=== PATIENT | female | born 1995 | race Caucasian/White ===

== ENCOUNTER 2019-03-23 13:57 | Emergency (ER) | payer OTHER ==
[~2019-03-23] VITALS: Ht 167.6 cm; Wt 63.5 kg
[2019-03-23 14:10] VITALS: BP 124/56
--- NOTE | 2019-03-23 14:13 | NUR ---
PT AMBULATED TO ED BECCA
--- NOTE | 2019-03-23 14:50 | NUR ---
PT TAKEN TO CHAIR B.
[2019-03-23] MEDS ORDERED: ACETAMINOPHEN 325 MG TAB PO ONE (15:00)
--- NOTE | 2019-03-23 15:00 | NUR ---
23/F BIB SELF C/O GENERALIZED BODY PAIN X 4 MONTHS. PT STATED HAD BEEN USING FENTANY[place] FOR 8 MONTHS RECREATIONALLY "FROM ON THE STREETS", STOPPED 4 MONTHS AGO. THEN STATED HAVING BODY PAIN. STATES SHARP PAIN NOW AT BL LUMBAR BACK AND AND BL KNEES. DENIES F/C, N/V, UTI SYMPTOMS, TRAUMA. HX- DENIES
--- NOTE | 2019-03-23 15:10 | NUR ---
Patient discharged with v/s stable. Written and verbal after care instructions given and explained. Patient alert, oriented and verbalized understanding of instructions. Ambulatory with steady gait. All questions addressed prior to discharge. ID band removed. Patient advised to follow up with PMD. Rx of FLEXERIL AND IBUPROFEN given. Patient educated on indication of medication including possible reaction and side effects. Opportunity to ask questions provided and answered.
[2019-03-23 15:12] VITALS: BP 124/56
== END 2019-03-23 15:10 | disposition home or self-care (01) ==
LOC: MED 13:57
DX: M79.10 Myalgia, unspecified site (principal)
CPT/HCPCS: 99283

== ENCOUNTER 2019-04-12 20:49 | Emergency (ER) | payer OTHER ==
[~2019-04-12] VITALS: Ht 167.6 cm; Wt 65.8 kg
[2019-04-12 21:02] VITALS: BP 105/71
--- NOTE | 2019-04-12 22:17 | NUR ---
PT AMBULATED TO BED 4
--- NOTE | 2019-04-12 22:39 | NUR ---
BIB SELF C/O BODY ACHES/ RHINORRHEA/ SORE THROAT/ NAUSEA X2DAYS. DENIES ANY V/D, SOB, CHEST PAIN. RESP ARE EVEN AND UNLABORED. NO ACCESSORY MUSCLE USE NOTED. BOWEL SOUNDS NORMOACTIVE. CAP REFILL<3. AAOX4. SKIN IS COOL,DRY, IN TACT. PATIENT DENIES ANY RECENT ILLNESS. NO PMH NKA
[2019-04-12] MEDS ORDERED: KETOROLAC 30 MG/ML VIAL IM ONE (23:25)
[2019-04-12 23:47] VITALS: BP 105/71
--- NOTE | 2019-04-12 23:47 | NUR ---
Patient discharged with v/s stable. Written and verbal after care instructions given and explained. Patient alert, oriented and verbalized understanding of instructions. Ambulatory with steady gait. All questions addressed prior to discharge. ID band removed. Patient advised to follow up with PMD. Rx of TAMIFLU, NAPROSYN, GUAIATUSSIN given. Patient educated on indication of medication including possible reaction and side effects. Opportunity to ask questions provided and answered.
== END 2019-04-12 23:47 | disposition home or self-care (01) ==
LOC: MED 20:49
DX: J11.1 Influenza due to unidentified influenza virus with other respiratory manifestations (principal)
CPT/HCPCS: 87804; 96372; 99283; J1885

== ENCOUNTER 2019-04-24 11:43 | Emergency (ER) | payer OTHER ==
[~2019-04-24] VITALS: Ht 162.6 cm; Wt 62.6 kg
--- NOTE | 2019-04-24 11:49 | NUR ---
PATIENT AMBULATED WITH STEADY GAIT TO BED 2.
[2019-04-24 11:50] VITALS: BP 102/66
--- NOTE | 2019-04-24 12:41 | NUR ---
Stable VSS Minimal pain MD has reassessed and Dc'd home To exit
== END 2019-04-24 12:41 | disposition home or self-care (01) ==
LOC: MED 11:43
DX: B07.0 Plantar wart (principal)
CPT/HCPCS: 99281

== ENCOUNTER 2020-01-28 13:15 | Emergency (ER) | payer OTHER ==
[~2020-01-28] VITALS: Ht 167.6 cm; Wt 68.0 kg
[2020-01-28 14:01] VITALS: BP 109/70
--- NOTE | 2020-01-28 14:08 | NUR ---
OF4
[2020-01-28 14:53] VITALS: BP 109/70
--- NOTE | 2020-01-28 14:54 | NUR ---
C/O COUGH, RUNNY NOSE, BODY ACHE. FAMILY HAD COVID TESTED +.
--- NOTE | 2020-01-28 14:54 | NUR ---
Patient discharged with v/s stable. Written and verbal after care instructions given and explained. Patient verbalized understanding. Ambulatory with steady gait. All questions addressed prior to discharge. Advised to follow up with PMD.
--- NOTE | 2020-01-29 20:17 | NUR ---
Positive COVID-19 test results were received from lab. A copy of the test results were given to Infection
== END 2020-01-28 14:54 | disposition home or self-care (01) ==
LOC: MED 13:15
DX: J02.9 Acute pharyngitis, unspecified (principal); Z20.828 Contact with and (suspected) exposure to other viral communicable diseases
CPT/HCPCS: 99283; U0003

== ENCOUNTER 2020-09-19 12:48 | Emergency (ER) | payer OTHER ==
[~2020-09-19] VITALS: Ht 152.4 cm; Wt 63.5 kg
[2020-09-19 12:56] VITALS: BP 113/72
--- NOTE | 2020-09-19 12:59 | NUR ---
PT TO AWAIT IN LOBBY
[2020-09-19] MEDS ORDERED: CEPH-588 PO (13:45)
[2020-09-19] MEDS ORDERED: HYD1C TP (13:45)
[2020-09-19] MEDS ORDERED: NAPR-54 PO (13:45)
[2020-09-19 13:55] VITALS: BP 113/72
--- NOTE | 2020-09-19 13:56 | NUR ---
PATIENT ASSESSED AND DISCHARGED BY GURMEET ADAN. NO NURSING INTERVENTIONS PERFORMED
--- NOTE | 2020-09-19 13:56 | NUR ---
Patient discharged with v/s stable. Written and verbal after care instructions given and explained. Patient alert, oriented and verbalized understanding of instructions. Ambulatory with steady gait. All questions addressed prior to discharge. ID band removed. Patient advised to follow up with PMD. Rx of KEFLEX, HYDROCORTISONE, AND NAPROXEN given. Patient educated on indication of medication including possible reaction and side effects. Opportunity to ask questions provided and answered.
== END 2020-09-19 13:56 | disposition home or self-care (01) ==
LOC: MED 12:48
DX: S80.861A Insect bite (nonvenomous), right lower leg, initial encounter (principal); W57.XXXA Bitten or stung by nonvenomous insect and other nonvenomous arthropods, initial encounter; Y93.89 Activity, other specified; Y92.89 Other specified places as the place of occurrence of the external cause; Y99.8 Other external cause status
CPT/HCPCS: 99283

== ENCOUNTER 2021-02-22 13:59 | Emergency (ER) | payer OTHER, SELFPAY ==
[~2021-02-22] VITALS: Ht 167.6 cm; Wt 65.8 kg
[~2021-02-22 13:59] MED LIST: CEPH-588 PO; HYD1C TP; NAPR-54 PO; OMEP20EC11 PO; ONDA-188 PO
[2021-02-22 14:11] VITALS: BP 111/66
[2021-02-22] MEDS ORDERED: ACETAMINOPHEN 325 MG TAB PO ONE (14:50)
--- NOTE | 2021-02-22 15:18 | NUR ---
25/F BIB SELF WITH C/O COUGH AND CONGESTION X1 WEEK, STATES SHE FEELS CHEST PAIN WHEN COUGHING TODAY. REPORTS TAKING UNKNOWN MEDICATION FOR CONGESTION WITH NO RELIEF. DENIES FEVERS, CP, DENIES SICK CONTACTS. STATES SHE WAS TESTED FOR COVID THIS MORNING AND RECEIVED A NEGATIVE RESULT.
[2021-02-22] MEDS ORDERED: ACETAMINOPHEN EXTRA STRENGTH 500 MG TAB PO ONE (15:20)
[2021-02-22] MEDS ORDERED: BPM/118S31 PO (16:01)
--- NOTE | 2021-02-22 16:16 | NUR ---
Patient discharged with v/s stable. Written and verbal after care instructions ABOUT SINUSITIS given and explained. Patient alert, oriented and verbalized understanding of instructions. Ambulatory with STEADY GAIT. All questions addressed prior to discharge. ID band removed. Patient advised to follow up with PMD. Rx of given. Patient educated on indication of medication including possible reaction and side effects. Opportunity to ask questions provided and answered.
== END 2021-02-22 16:16 | disposition home or self-care (01) ==
LOC: MED 13:59 → MERGE 13:59 → MED 16:16
DX: R05.9 Cough, unspecified (principal); R09.89 Other specified symptoms and signs involving the circulatory and respiratory systems
CPT/HCPCS: 71045; 99283

== ENCOUNTER 2021-07-27 18:35 | Emergency (ER) | payer OTHER ==
[~2021-07-27] VITALS: Ht 167.6 cm; Wt 64.0 kg
[~2021-07-27 18:35] MED LIST changes: +BPM/118S31 PO
[2021-07-27 18:46] VITALS: BP 115/57
== END 2021-07-27 20:51 | disposition left against medical advice (07) ==
LOC: MED 18:35
DX: K62.89 Other specified diseases of anus and rectum (principal); Z53.21 Procedure and treatment not carried out due to patient leaving prior to being seen by health care provider